=== PATIENT | female | born 1985 ===

== ENCOUNTER → 2023-05-18 | Outpatient (CLI) | payer OTHER ==
[2023-05-19 11:00] LABS: Candida species (DNA Probe) Negative (NEGATIVE); G. vaginalis (DNA Probe) Negative (NEGATIVE); T. vaginalis (DNA Probe) Negative (NEGATIVE)
== END ==
LOC: LAB SHORT 18:38 → LAB 18:38
PROVIDERS: Obstetrics & Gynecology
DX: N76.0 Acute vaginitis (principal)
CPT/HCPCS: 87480; 87510; 87660

== ENCOUNTER → 2023-08-08 | Outpatient (CLI) | payer OTHER | END | disposition home or self-care (01) | LOC: LAB 18:50 → LAB SHORT 18:50 | DX: O09.522 Supervision of elderly multigravida, second trimester (principal) ==

== ENCOUNTER → 2023-10-01 | Outpatient (CLI) | payer OTHER | END | disposition home or self-care (01) | LOC: LAB 15:51 → LAB SHORT 15:51 | DX: O09.523 Supervision of elderly multigravida, third trimester (principal) | CPT/HCPCS: 87081; 87150 ==

== ENCOUNTER 2023-10-25 11:05 | Inpatient (IN) | payer OTHER ==
[2023-10-25] VITALS (23 sets, daily range): BP systolic 112–182; BP diastolic 56–104
[~2023-10-25] VITALS: Ht 170.2 cm; Wt 110.0 kg
[2023-10-25 12:16] LABS: BASOPHILS ABSOLUTE AUTO 0.03 K/mm3 (0.00-0.23); BASOPHILS PERCENT AUTO 0 % (0-2); EOSINOPHILS ABSOLUTE AUTO 0.09 K/mm3 (0.00-0.68); EOSINOPHILS PERCENT AUTO 1 % (0-6); Hematocrit 28.7 % (33.0-51.0); Hemoglobin 9.3 g/dL (11.5-16.0); IMMATURE GRAN ABSOLUTE AUTO 0.04 K/mm3 (0.00-0.10); IMMATURE GRAN PERCENT AUTO 0 % (0-1); LYMPHOCYTES ABSOLUTE AUTO 2.15 K/mm3 (0.84-5.20); LYMPHOCYTES PERCENT AUTO 18 % (21-46); MONOCYTES ABSOLUTE AUTO 0.87 K/mm3 (0.16-1.47); MONOCYTES PERCENT AUTO 7 % (4-13); Mean Corpuscular HGB Conc 32.4 g/dL (31.5-36.5); Mean Corpuscular Volume 83 fL (80-100); Mean Platelet Volume 12.2 fL (9.1-12.4); NEUTROPHILS ABSOLUTE AUTO 8.56 K/mm3 (1.96-9.15); NEUTROPHILS PERCENT AUTO 73 % (41-73); Platelet Count 218 K/mm3 (150-400); RDW Coefficient Variation 15.1 % (11.7-14.2); RDW Standard Deviation 45.1 fL (35.1-46.3); Red Blood Cell Count 3.45 M/mm3 (3.80-5.20); White Blood Cell Count 11.74 K/mm3 (4.00-11.30)
[2023-10-25 12:30] LABS: Albumin, Blood 2.6 g/dL (3.4-5.0); Albumin/Globulin Ratio 0.5 (0.8-1.8); Bilirubin, Total 0.3 mg/dL (0.1-1.0); Bun/Creatinine Ratio 12.9 (12.0-20.0); Calcium, Blood 9.2 mg/dL (8.5-10.1); Creatinine, Blood 0.62 mg/dL (0.40-1.00); Globulin, Blood 4.8 g/dL (2.2-4.0); Potassium, Blood 3.7 mmol/L (3.5-5.5); Total Protein, Blood 7.4 g/dL (6.4-8.2)
[2023-10-25 12:56] LABS: Creatinine, Urine Random 31.3 mg/dL (27.00-270.00); Protein, Urine Random 7.6 mg/dL (0.0-11.9); Protein/Creat Ratio, Ur Random 0.2
[2023-10-25] MEDS ORDERED: Cyclobenzaprine HCl 10 MG Tab PO PRN (13:55)
[2023-10-25] MEDS ORDERED: Acetaminophen 500 MG Tab PO PRN (13:55)
[2023-10-25] MEDS ORDERED: Lactated Ringer's 1,000 ML IV PRN ×2 (15:05→19:50)
[2023-10-25] MEDS ORDERED: OXYTOCIN/RINGER'S LACTATE 500 ML IV SCH ×2 (15:05→15:20)
[2023-10-25] MEDS ORDERED: Misoprostol 200 MCG Tab PR SCH (15:05)
[2023-10-25] MEDS ORDERED: Lidocaine HCl 1% 30 ML SDV XX SCH (15:05)
[2023-10-25] MEDS ORDERED: Bupivacaine 0.5% HCl 5 MG/ML 30MLVIAL XX SCH (15:05)
[2023-10-25] MEDS ORDERED: Methylergonovine Maleate 0.2MG / ML 1ML Amp IM SCH (15:05)
[2023-10-25] MEDS ORDERED: Oxytocin 10 Unit / ML Vial IM SCH (15:05)
[2023-10-25] MEDS ORDERED: Bupivacaine HCl 2.5 MG/ML 10ML P/F Injection XX SCH (15:05)
[2023-10-25] MEDS ORDERED: Calcium Carbonate 500 MG Tab Chew PO PRN (15:15)
[2023-10-25] MEDS ORDERED: Lactated Ringer's 1,000 ML IV SCH ×2 (15:20→19:50)
[2023-10-25] MEDS ORDERED: Ondansetron HCl 2 MG / ML 2ML Vial IV PRN (15:20)
[2023-10-25] MEDS ORDERED: FentaNYL Citrate 50 MCG/ML 2 ML Injection IV PRN (18:20)
[2023-10-25] MEDS ORDERED: ePHEDrine Sulfate 50 MG/ML 1ML Injection XX PRN (19:50)
[2023-10-25] MEDS ORDERED: FentaNYL 2mcg/ml-Bup 0.1% Epd 250 ML EPI PRN (19:50)
[2023-10-26] VITALS (25 sets, daily range): BP systolic 105–142; BP diastolic 56–89
[2023-10-26] MEDS ORDERED: Benzocaine Topical Anesthetic Spray 60GM TOP PRN (07:30)
[2023-10-26] MEDS ORDERED: OXYTOCIN/RINGER'S LACTATE 500 ML IV SCH (07:30)
[2023-10-26] MEDS ORDERED: Ibuprofen 400 MG Tab PO PRN (07:30)
[2023-10-26] MEDS ORDERED: Witch Hazel/Glycerin PADS TOP PRN (07:30)
[2023-10-26] MEDS ORDERED: Docusate Sodium 100 MG Cap PO PRN (07:30)
[2023-10-26] MEDS ORDERED: Lactated Ringer's 1,000 ML IV SCH (07:35)
[2023-10-26] MEDS ORDERED: Measles/Mumps/Rubella Vaccine 0.5 ML Vial SC ONE (07:35)
[2023-10-26] MEDS ORDERED: Misoprostol 200 MCG Tab PR PRN (07:35)
[2023-10-26] MEDS ORDERED: Rho(D) Immune Globulin 300 MCG / SYR IM ONE (07:35)
[2023-10-26] MEDS ORDERED: Ketorolac Tromethamine 30mg Vial IV PRN (07:45)
[2023-10-26] MEDS ORDERED: Prenatal Vit/FE Fumarate/FA 1 Tab PO SCH (09:00)
[2023-10-26] MEDS ORDERED: Sod Ferric Gluc Complx/Sucrose 125 MG in NS 100 ML IV SCH (09:00)
--- NOTE | 2023-10-26 10:51 | NUR ---
IRON INFUSION COMPLETED. IV SALINE LOCKED. PT RECENTLY FINISHED AND IS NOW GOING TO [facility]. NB ASLEEP IN [place] AT BEDSIDE. REMINDED PT TO CALL BEFORE NEXT FEED SO THAT WE CAN CHECK NB'S BLOOD SUGAR.
--- NOTE | 2023-10-26 13:51 | NUR ---
PT SITTING UP IN BED. REPORTS BLEEDING HAS BEEN MODERATE. DENIES PAIN OR OTHER COMPLAINTS. NO FURTHER REQUESTS AT THIS TIME. PT ENCOURAGED TO OFFER BREASTFEED TO NB.
--- NOTE | 2023-10-26 16:24 | NUR ---
PT UP TO BATHROOM TO VOID AND PERFORM PERICARE. PT NOW BACK TO BED AND NB, NO ASSISTANCE NEEDED FROM RN TO ATTAIN LATCH. PT GIVEN D/C INSTRUCTIONS TO REVIEW AND PATERNITY PAPERWORK TO WORK ON. PT DENIES FURTHER NEEDS, CALL LIGHT AND BELONGINGS WITHIN REACH.
[2023-10-27 04:25] VITALS: BP 121/69
[2023-10-27 05:59] LABS: Hematocrit 27.8 % (33.0-51.0); Hemoglobin 8.8 g/dL (11.5-16.0); Mean Corpuscular HGB Conc 31.7 g/dL (31.5-36.5); Mean Corpuscular Volume 85 fL (80-100); Mean Platelet Volume 12.2 fL (9.1-12.4); Platelet Count 220 K/mm3 (150-400); RDW Coefficient Variation 15.3 % (11.7-14.2); RDW Standard Deviation 46.5 fL (35.1-46.3); Red Blood Cell Count 3.26 M/mm3 (3.80-5.20); White Blood Cell Count 17.87 K/mm3 (4.00-11.30)
[2023-10-27 08:57] VITALS: BP 130/61
== END 2023-10-27 12:47 | disposition home or self-care (01) | DRG 807 ==
LOC: OBS 11:05 → BC 11:06 → OBS 11:58 → BC 11:58
PROVIDERS: ADMIT Obstetrics & Gynecology
PROC: 10E0XZZ Delivery of Products of Conception, External Approach (ICD-10-PCS; principal; 2023-10-26)
PROC: 10H07YZ Insertion of Other Device into Products of Conception, Via Natural or Artificial Opening (ICD-10-PCS; 2023-10-26)
PROC: 3E0R3BZ Introduction of Anesthetic Agent into Spinal Canal, Percutaneous Approach (ICD-10-PCS; 2023-10-26)
PROC: 00HU33Z Insertion of Infusion Device into Spinal Canal, Percutaneous Approach (ICD-10-PCS; 2023-10-26)
PROC: 10907ZC Drainage of Amniotic Fluid, Therapeutic from Products of Conception, Via Natural or Artificial Opening (ICD-10-PCS; 2023-10-26)
DX: O13.4 Gestational [pregnancy-induced] hypertension without significant proteinuria, complicating childbirth (principal); Z37.0 Single live birth; O24.420 Gestational diabetes mellitus in childbirth, diet controlled; O99.324 Drug use complicating childbirth; Z3A.39 39 weeks gestation of pregnancy; O99.214 Obesity complicating childbirth; O99.344 Other mental disorders complicating childbirth; F39 Unspecified mood [affective] disorder; O99.52 Diseases of the respiratory system complicating childbirth; O99.02 Anemia complicating childbirth; J45.909 Unspecified asthma, uncomplicated; F12.90 Cannabis use, unspecified, uncomplicated; O71.89 Other specified obstetric trauma; Z87.891 Personal history of nicotine dependence; Z88.8 Allergy status to other drugs, medicaments and biological substances; Z91.013 Allergy to seafood
CPT/HCPCS: 36415; 51702; 80053; 82570; 82947; 84156; 85025; 85027; 86850; 86900; 86901; A9270; J1885; J2405; J2590; J2916; J7120

== ENCOUNTER 2023-12-10 07:23 | Day surgery (SDC) | payer OTHER ==
[2023-12-10] VITALS (11 sets, daily range): BP systolic 100–115; BP diastolic 66–84
[~2023-12-10] VITALS: Ht 167.6 cm; Wt 96.6 kg
[2023-12-10] MEDS ORDERED: Lactated Ringer's 1,000 ML IV SCH (07:50)
[2023-12-10] MEDS ORDERED: BUPR75 PO (07:59)
[2023-12-10] MEDS ORDERED: ONE-A-DAY PREN1 EAC1 PO (08:00)
[2023-12-10] MEDS ORDERED: IBUP800 PO (08:00)
[2023-12-10] MEDS ORDERED: IRON FOLATE PL1 EACH PO (08:01)
[2023-12-10] MEDS ORDERED: Bupivacaine 0.5% HCl 5 MG/ML 30MLVIAL ONE (08:24)
[2023-12-10] MEDS ORDERED: Midazolam HCl 1MG / ML 2ML Vial ONE (08:26)
[2023-12-10] MEDS ORDERED: FentaNYL Citrate 50 MCG/ML 2 ML Injection ONE ×2 (08:26→10:15)
[2023-12-10] MEDS ORDERED: propofoL 20 ML IV ONE ×2 (08:27→09:30)
--- NOTE | 2023-12-10 08:29 | NUR ---
Ambulatory in Day Surgery. History, Chart, Medications and Allergies reviewed before start of procedure. Lungs clear T/O to Auscultation. Patient confirms NPO status and agrees with scheduled surgery. Pre-Op teaching done. Pt verbalizes understanding. Patient States Post-Procedure ride home has been arranged. PT BELONGINGS PLACED UNDERNEATH GURNEY FOR SAFEKEEPING. PT GLASSES TAKEN TO PACU FOR SAFEKEEPING. PT HAS SILICONE BRACELET ON LEFT WRIST, METAL BRACELET ON RIGHT WRIST, THAT SHE REPORTS CANNOT BE REMOVED. JEWELRY CONSENT SIGNED. OR TEAM NOTIFIED.
[2023-12-10] MEDS ORDERED: Ondansetron HCl 2 MG / ML 2ML Vial ONE (08:49)
[2023-12-10] MEDS ORDERED: Rocuronium Bromide 10 MG/ML 5ML Injection IV ONE (08:49)
[2023-12-10] MEDS ORDERED: Dexamethasone Sod Phos 10 MG/ML 1ML VIAL ONE (08:49)
[2023-12-10] MEDS ORDERED: Sugammadex Sodium 200 MG/2ML SDV (100 MG/ML) ONE (09:29)
[2023-12-10] MEDS ORDERED: Ketorolac Tromethamine 30mg Vial ONE (09:29)
[2023-12-10] MEDS ORDERED: OxyCODONE 5 mg/Acetamin 325 mg TABLET PO PRN (09:50)
--- NOTE | 2023-12-10 11:06 | NUR ---
DISCHARGE NOTE Pt awake and talking, able to stand steadily in day surgery. Tolerating PO fluids and crackers. Very scant bleeding present on heavenly pad. Pt medicated w/ PO pain pill per emar for mild pain before discharge. Discharge instructions reviewed with patient. Patient verbalizes understanding. Copy given to patient to take home. Lungs clear T/O to Auscultation. Discharged via wheelchair to private car for ride home.
== END 2023-12-10 11:20 | disposition home or self-care (01) ==
LOC: ORSCMMR 07:23 → ORD 08:30 → ORSCMMR 08:30
PROVIDERS: Obstetrics & Gynecology
PROC: 0UB74ZZ Excision of Bilateral Fallopian Tubes, Percutaneous Endoscopic Approach (ICD-10-PCS; principal; 2023-12-10 08:30)
DX: Z30.2 Encounter for sterilization (principal); F31.9 Bipolar disorder, unspecified; I10 Essential (primary) hypertension; J45.909 Unspecified asthma, uncomplicated; E66.9 Obesity, unspecified; Z68.34 Body mass index [BMI] 34.0-34.9, adult; Z79.899 Other long term (current) drug therapy; Z87.891 Personal history of nicotine dependence
CPT/HCPCS: 88302; A9270; J1100; J1885; J2250; J2405; J2704; J3010; J7120

== ENCOUNTER 2024-09-16 21:44 | Emergency (ER) | payer OTHER ==
[~2024-09-16] VITALS: Ht 167.6 cm; Wt 99.8 kg
[~2024-09-16 21:44] MED LIST: BUPR75 PO; IBUP800 PO; IRON FOLATE PL1 EACH PO; ONE-A-DAY PREN1 EAC1 PO
[2024-09-16 21:47] VITALS: BP 177/111
[2024-09-16] MEDS ORDERED: IBU600 MG PO (23:27)
== END 2024-09-17 01:18 | disposition home or self-care (01) ==
LOC: ER 21:44
DX: S63.502A Unspecified sprain of left wrist, initial encounter (principal); Z88.6 Allergy status to analgesic agent; Z91.013 Allergy to seafood; Z79.899 Other long term (current) drug therapy; W20.8XXA Other cause of strike by thrown, projected or falling object, initial encounter
CPT/HCPCS: 29125; 73110; 99283-25